=== PATIENT | female | born 1995 | race Asian ===

== ENCOUNTER 2019-10-20 18:58 | Emergency (ER) | payer MEDICAID ==
[~2019-10-20] VITALS: Ht 170.2 cm; Wt 103.8 kg
[2019-10-20 20:25] LABS: CLARITY URINE CLOUDY (CLEAR); COLOR URINE YELLOW (YELLOW); KETONES URINE NEGATIVE (NEGATIVE); LEUKOCYTE ESTERASE URINE 2+ (NEGATIVE); NITRITE URINE NEGATIVE (NEGATIVE); OCCULT BLOOD URINE 3+ (NEGATIVE); PH URINE 5.5 (4.5-8.0); PROTEIN URINE TRACE (NEGATIVE); SPECIFIC GRAVITY URINE 1.028 (1.005-1.030); UROBILINOGEN URINE 0.2 E.U./dL (0.2-1.0)
[2019-10-21 00:59] LABS: BASOPHILS % 0.6 % (0.0-2.0); EOSINOPHILS % 1.2 % (0.0-5.0); HEMATOCRIT. 39.4 % (36.0-48.0); LYMPHOCYTES % 18.8 % (20.0-50.0); MEAN CORPUSCULAR HEMOGLOBIN 25.9 pg (28.0-32.0); MEAN CORPUSCULAR VOLUME 78.4 fL (81.0-99.0); MEAN PLATELET VOLUME 6.7 fl (7.4-10.4); MONOCYTES % 6.9 % (2.0-8.0); NEUTROPHILS % 72.5 % (40.0-76.0); PLATELET 330 x1000/uL (130-400); RED BLOOD CELL COUNT 5.03 mill/uL (4.2-5.4); RED CELL DISTRIBUTION WIDTH 15.3 % (11.6-14.6)
[2019-10-21 01:01] LABS: CHLORIDE 106 mEq/L (98-107)
[2019-10-21] MEDS ORDERED: VISCOUS LIDOCAINE 2% 15 ML UDC PO STA (02:20)
[2019-10-21] MEDS ORDERED: MAGNESIUM/ALUMINUM HYDROXIDE/SIMETHICONE 30ML UDC PO STA (02:20)
[2019-10-21 03:41] VITALS: BP 104/65
== END 2019-10-21 03:47 | disposition home or self-care (01) ==
LOC: ER 18:58
DX: N39.0 Urinary tract infection, site not specified (principal); K30 Functional dyspepsia; K44.9 Diaphragmatic hernia without obstruction or gangrene
CPT/HCPCS: 36415; 80053; 81003; 81025; 85025; 99283